=== PATIENT | male | born 1990 | race Two or more races ===

== ENCOUNTER → 2019-10-06 | Outpatient (REF) | payer OTHER ==
[2019-10-07 13:39] LABS: CHLAMYDIA DNA AMPLIFICATION NEGATIVE (NEGATIVE); GC DNA AMPLIFICATION NEGATIVE (NEGATIVE)
== END ==
LOC: M SFHCLERA 19:34
PROVIDERS: ATTEND Nurse Practitioner Family
DX: Z11.3 Encounter for screening for infections with a predominantly sexual mode of transmission (principal)
CPT/HCPCS: 81002; 87086; 87661; G0463

== ENCOUNTER 2020-07-12 13:51 | Emergency (ER) | payer OTHER ==
[~2020-07-12] VITALS: Ht 170.2 cm; Wt 118.8 kg
[2020-07-12] MEDS ORDERED: ACET-861 PO (14:03)
--- NOTE | 2020-07-12 14:31 | REPVR ---
PROCEDURE INFORMATION: Exam: XR Right Knee Exam date and time: 07/12/2020 2:04 PM Age: 30 years old Clinical indication: Pain; Knee; Right TECHNIQUE: Imaging protocol: XR Right knee. Views: 4 or more views. COMPARISON: No relevant prior studies available. FINDINGS: Bones/joints: No acute fracture or dislocation is identified. There is no osseous erosion or cortical destruction. No focal lytic or blastic lesion is identified. Soft tissues: The soft tissues appear mildly swollen anteriorly, and there is a small calcification anteriorly, seen on the trans patellar view, which is of uncertain significance. Mild fullness of the soft tissues in the suprapatellar region is noted. IMPRESSION: 1. Mild anterior soft tissue swelling with a small calcification anteriorly, significance uncertain. Consider further characterization with MRI. 2. Mild suprapatellar soft tissue fullness suggesting effusion and/or synovial hypertrophy. Electronically signed by: Morales Conti On 07/12/2020 14:31:18 PM
[2020-07-12 15:34] LABS: BASO % 0.3 % (0.0-1.0); EOS # 0.3 10^3/uL (0.0-0.5); EOS % 3.1 % (0.0-3.0); HEMATOCRIT 42.7 % (42.0-52.0); LYMPH # 2.3 10^3/uL (1.5-5.0); LYMPH % 23.6 % (24.0-44.0); MEAN CORPUSCULAR HEMOGLOBIN 30.4 pg (27.0-33.0); MEAN CORPUSCULAR HGB CONC 35.1 g/dl (32.0-36.5); MEAN CORPUSCULAR VOLUME 86.4 fl (80.0-96.0); MONO # 1.2 10^3/uL (0.0-0.8); MONO % 12.4 % (0.0-5.0); NEUTROPHILS # 5.8 10^3/uL (1.5-8.5); NEUTROPHILS % 60.3 % (36.0-66.0); PLATELET COUNT, AUTOMATED 241 10^3/uL (150-450); RED BLOOD COUNT 4.94 10^6/uL (4.30-6.10); WHITE BLOOD COUNT 9.6 10^3/uL (4.0-10.0)
[2020-07-12] MEDS ORDERED: KEFL500C17 PO (16:00)
[2020-07-12] MEDS ORDERED: CEPHALEXIN 500 MG CAP PO ONE (16:00)
[2020-07-12 16:28] LABS: ALBUMIN 4.3 GM/DL (3.2-5.2); ALT/SGPT 38 U/L (12-78); BILIRUBIN,TOTAL 0.4 MG/DL (0.2-1.0); BLOOD UREA NITROGEN 13 MG/DL (7-18); C REACTIVE PROTEIN QUANTITATIV 0.46 MG/DL (0.00-0.30); CALCIUM LEVEL 9.4 MG/DL (8.5-10.1); CARBON DIOXIDE LEVEL 32 MEQ/L (21-32); CHLORIDE LEVEL 102 MEQ/L (98-107); CREATININE FOR GFR 1.25 MG/DL (0.70-1.30); GLOMERULAR FILTRATION RATE > 60.0 (>60); GLUCOSE, FASTING 102 MG/DL (70-100); POTASSIUM SERUM 4.2 MEQ/L (3.5-5.1); SODIUM LEVEL 139 MEQ/L (136-145); TOTAL PROTEIN 7.7 GM/DL (6.4-8.2)
[2020-07-12 16:55] VITALS: BP 178/76
--- NOTE | 2020-07-13 16:30 | ED PDOC ---
Post-Departure Follow-Up ft anmol fox faxed formal report of rightr knee film for fu Rocío Patton MD Jul 13, 2020 16:30
== END 2020-07-12 16:58 | disposition home or self-care (01) ==
LOC: M ED 13:51
DX: L03.115 Cellulitis of right lower limb (principal); M25.461 Effusion, right knee